=== PATIENT | male | born 1975 | race Caucasian/White ===

== ENCOUNTER 2017-02-01 08:45 | Day surgery (SDC) | payer BC ==
[2017-02-01] MEDS ORDERED: PROPOFOL 500 MG/50 ML EMU IV ONE (09:04)
[2017-02-01] MEDS ORDERED: FENTANYL 100MCG/2ML SOL ONE (09:05)
[2017-02-01] MEDS ORDERED: LIDOCAINE HCL 1% MPF SOL ONE (09:51)
[2017-02-01 11:14] VITALS: BP 121/80; PULSE 57; RESP 20; TEMP 97.2; O2SAT 95
== END 2017-02-01 11:30 | disposition other institution (70) ==
LOC: SURG 08:45
PROVIDERS: ATTEND Surgery
DX: R05 Cough (principal)
CPT/HCPCS: 43235; 71250; J2001; J2704; J3010